=== PATIENT | male | born 1985 | race Caucasian/White ===

== ENCOUNTER 2023-06-26 06:35 | Emergency (ER) | payer BC ==
--- OUTSIDE RECORDS SUMMARY | 2023-06-26 06:38 | XMS REPORT | Continuity of Care Document ---
:1985 Author Organization [facility] t Address [address] [facility] [address] [place] [address] Care Team Providers Name Role Phone EARNEST KUNZ Primary Care Physician Unavailable Lapin_S Attending Clinician Unavailable JAIME HAGAN Attending Clinician Unavailable Jaime Estrada Attending Clinician Yvrose Webber Attending Clinician Doctor Unassigned, [place] Attending Clinician Unavailable Radiology Attending Clinician Unavailable RADIOLOGY Attending Clinician Unavailable Lapin_S Admitting Clinician Unavailable Payers Payer Name Policy Type Policy Number Effective Date Expiration Date S [place] [id number] 2017 00:00:00 [place] [id number] 2017 00:00:00 Problems Condition Condition Condition Status Onset Resolution Last Treating Co mments Source Name Details Category Date Date Treatment Clinician Date Varicocele Varicocele Problem Active 2021-10 [place] 2-13 [place] 00:00: Urology 00 Male Male Problem Active 2021-10 [place] sterilizat Sterilizat 2-12 Me tro ion ion 00:00: Urology 00 No known No known Disease Unive rs active active ity of problems problems [facility] Allergies, Adverse Reactions, Alerts Allergy Allergy Status Severity Reaction(s) Onset Inactive Treating Comm ents Source Name Type Date Date Clinician NO KNOWN Drug Active Univers ALLERGIE Class ity of S [facility] Social History Social Habit Start Date Stop Date Quantity Comments Source Sexual orientation [facility] Gender [facility] Exposure to 2022-04-05 2022-04-15 Not sure University SARS-CoV-2 (event) 00:00:00 16:16:00 [facility] Tobacco use and 2022-04-15 2022-04-15 Never used Universit y of exposure 00:00:00 00:00:00 [facility] History of Social 2019-05-31 2019-05-[address] function 00:00:00 00:00:00 Hospital Alcohol intake 2018-08-30 2018-08-30 Current drinker [facility] 00:00:00 00:00:00 [facility] (finding) Alcohol Comment 2018-08-30 2018-08-30 occasional [facility] 00[facility]00 [facility] Sex Assigned At [birth year] [facility] 00:[facility]00 [facility] Smoking Status Start Date Stop Date Source Never Smoker [facility] Unknown if ever smoked Universit y of [facility] Medications Ordered Filled Start Stop Current Ordering Indication Dosage Frequency Signature Comments Components Source Medication Medication Date Date Medication? Clinician (SIG) Name Name cephALEXin Yes [id number] 500mg Take 1 Univers (KEFLEX) 04-15 [id number] capsule by ity of 500 mg 00:00: mouth 4 [place] capsule 00 (four) Medical times Branch daily. mupirocin 2 Yes [id number] Apply to Univers % ointment 04-15 [id number] area(s) 3 it y of 00:00: (three) [place] 00 times Medical daily. Branch cephALEXin Yes [id number] 500mg Take 1 Univers (KEFLEX) 04-15 [id number] capsule by ity of 500 mg 00:00: mouth 4 [place] capsule 00 (four) Medical times Branch daily. mupirocin 2 Yes [id number] Apply to Univers % ointment 04-15 [id number] area(s) 3 it y of 00:00: (three) [place] 00 times Medical daily. Branch mupirocin 2 2021- No [id number] Apply to Univers % ointment 04-15 [id number] area(s) 3 i ty of 00:00: 00:00 (three) [place] 00 :00 times Medical daily for Branch 5 days. cephALEXin [id number] 500mg Take 1 Univers (KEFLEX) 04-15 [id number] capsule by it y of 500 mg 00:00: 00:00 mouth 4 [place] capsule 00 :00 (four) Medical times [place] daily for 7 days. sertraline sertraline No sertraline [place] 25 mg 25 mg 25 mg [place] tablet tablet tablet Urology Vital Signs Vital Name Observation Time Observation Value Comments Source Height 2022-09-21 00:00:00 73 [in_i] [facility] Urology BMI (Body Mass 2022-09-21 00:00:00 28.4 kg/m2 [place] Index) Urology Body Weight 2022-09-21 00:00:00 215 [lb_av] [facility] Urology Systolic blood 2022-04-15 21:25:00 138 mm[Hg] Univer [facility] Diastolic blood 2022-04-15 21:25:00 91 mm[Hg] [facility] Heart rate 2022-04-15 21:20:00 90 /min [facility] Body temperature 2022-04-15 21:20:00 36.89 [facility] Respiratory rate 2022-04-15 21:20:00 17 /min [facility] Body height 2022-04-15 21:20:00 185.4 cm [facility] Body weight 2022-04-15 21:20:00 99.791 kg [facility] BMI 2022-04-15 21:20:00 29.03 kg/m2 [facility] Oxygen saturation in 2022-04-15 21:20:00 99 /min [facility] Arterial blood by [facility] Pulse oximetry Branch Procedures Procedure Date / Time Performing Clinician Source Performed XR ANKLE 3+ VW LEFT 2022-04-15 21:38:00 Jaime Hagan [facility] ASSIGNMENT OF BENEFITS 2022-04-15 21:17:57 Doctor Unassigned, No [facility] Name [facility] XR CHEST 2 VW 2020-12-24 14:12:39 [facility] f [facility] XR RIBS 3 VW LEFT 2020-12-24 14:12:39 Earnest Kunz [facility] Diagnostic Colonoscopy 2016-10-10 00:00:00 [place] [facility] Plan of Care Planned Activity Planned Date Details Comments Source Future Scheduled Test 2023-06-15 COVID-19 VACCINE [facility] 01:38:59 (#1) [code = COVID-19 VACCINE (#1)] Future Scheduled Test 2023-06-15 INFLUENZA VACCINE [facility] 01:38:59 (#1) [code = INFLUENZA VACCINE (#1)] Diagnostic Test 2022-09-21 urinalysis, [place] Metr o Pending 00:00:00 dipstick [code = Urology urinalysis, dipstick] Encounters Start End Encounter Admission Attending Care Care Encounter Source Date/Time Date/Time Type Type Clinicians Facility Department ID 2022-10-05 2022-10-05 Outpatient Lapin_S [facility] [id number] [place] 00:00:00 00:00:00 [id number] [facility] 2022-09-21 2022-09-21 Outpatient Lapin_S [facility] [id number] 00:00:00 00:00:00 [id number] [facility] 2022-09-21 2022-09-21 Outpatient Lapin_S [facility] [id number] 00:00:00 00:00:00 [id number] [facility] 2022-09-21 2022-09-21 [facility] [place] - [id number] Sabrina quezada 00:00:00 00:00:00 Christa Ortiz MD: [facility] [address] [place] [place] [address], [place] [address] , Ph. 2022-09-17 2022-09-17 Outpatient Lapin_S [facility] [id number] 00:00:00 00:00:00 [id number] [facility] 2022-04-15 2022-04-15 [facility] [id number] Univers 16:28:09 23:59:00 JAIME blue [facility] 2022-04-15 2022-04-15 [facility] [id number] Univers 16:28:09 23:59:00 Encounter Jaime Castillo [facility] [id number] ity of [place] [id number] Ermias as JUSTIN?BLEA [id number] [facility] [address] MEDICAL OFFICE [facility] 2022-04-15 2022-04-15 Urgent Jaime Hagan [facility] [id number] Univers 16:20:00 16:44:29 Care Yvrose Davenport [employer] [id number] ity of [place] [id number] Ermias as JUSTIN?BLEA [id number] [facility] [address] [facility] OFFICE [facility] 2022-04-15 2022-04-15 Orders Doctor LISY [id number] Univers 00:00:00 00:00:00 Only Unassigned, JANET [id number] ity of [place] [facility] [id number] Ermias as [id number] [facility] [address] Branch 2020-12-24 2020-12-24 Hospital Radiology [facility] [id number] Univers 08:42:45 23:59:00 Encounter Nayla [id number] ity of [id number] [place] [id number] [facility] [address] 2020-12-24 2020-12-24 Outpatient R RADIOLOGY [facility] [id number] Univers 00:00:00 00:00:00 ity of [facility] Results Test Description Test Time Test Results Result Source Comments Comments XR RIBS 3 VW 2020-12-08 HISTORY: Chest pain. Un iversity of LEFT 7 R/O fractures. [facility] 14:17:04 FINDINGS: AP, several Bra nch obliques and spot views of the left ribs showednondisplaced fracture in the anterior left fifth, sixth ribs with possibleadditional incomplete fracture also in the anterior end of left seventh ribwith thickening and swelling of the underlying pleural lining. Nopneumothorax or pleural effusion. CONCLUSIONS: Nondisplaced fractures in anterior left fifth, sixth, seventhribs. [facility], Radiant Results Inft User - 12/24/2020 9:18 AM CDTHISTORY: Chest pain. R/O fractures.FINDINGS: AP, several obliques and spot views of the left ribs showednondisplaced fracture in the anterior left fifth, sixth ribs with possibleadditional incomplete fracture also in the anterior end of left seventh ribwith thickening and swelling of the underlying pleural lining. Nopneumothorax or pleural effusion. CONCLUSIONS: Nondisplaced fractures in anterior left fifth, sixth, seventhribs. XR CHEST 2 VW 2020-12-08 Addendum by Marina Paz versity of 7 MD [facility] on [facility] 14:15:41 12/24/2020 9:17 AM* * [facility] * * * * * * ADDENDUM: * * * * * * * *Some of the abnormal findings in the lower lungs could be secondary totrauma/nondisplaced fractures in left ribs.HISTORY: ?Chest pain. TECHNIQUE: 2 PA and one lateral views of the chest are obtained. No priorchest study available for comparison. FINDINGS: Linear increased markings are seen in both lower lungs, portionsof lingula segment and right middle lobe consistent with mildcongestion/discoid atelectatic changes without focal consolidation.Calcifie d granuloma is seen in the right middle lobe. Cardiomediastinal silhouette appear normal. No pneumothorax or pleuraleffusion. Minimal deformity due to fracture in the anterior left sixth rib with focalpleural thickening is visualized. CONCLUSIONS: Minimal bilateral pulmonary congestion/atelectatic changes,consistent with possibility of viral infection/bronchitis.[facility], Radiant Results Inft User - 12/24/2020 9:16 AM CDTHISTORY: Chest pain.TECHNIQUE: 2 PA and one lateral views of the chest are obtained. No priorchest study available for comparison.FINDINGS: Linear increased markings are seen in both lower lungs, portionsof lingula segment and right middle lobe consistent with mildcongestion/discoid atelectatic changes without focal consolidation.Calcifie d granuloma is seen in the right middle lobe.Cardiomediastinal silhouette appear normal. No pneumothorax or pleuraleffusion.Minima l deformity due to fracture in the anterior left sixth rib with focalpleural thickening is visualized.CONCLUSIONS : Minimal bilateral pulmonary congestion/atelectatic changes,consistent with possibility of viral infection/bronchitis.
[2023-06-26] MEDS ORDERED: KETOROLAC 30 MG/ML INJ ONE (07:51)
--- NOTE | 2023-06-26 08:29 | EDPHYS ---
Physician Documentation [facility] Name: David Link Age: 38 yrs Sex: Male : 1985 Arrival Date: 06/26/2023 Time: 06:35 Bed 6 Private MD: ED Physician Candelario Elaine HPI: 06/26 07:10 This 38 yrs old Male presents to ER via Ambulatory with complaints of Back sp4 Pain. 07:36 This 38 yrs old Male presents to ER via Ambulatory with complaints of Back ci Pain. 07:36 The patient presents with pain that is acute, with no known mechanism of injury. The ci patient presents with pain that is chronic, acute on chronic right lower back pain. The symptoms are located in the low back. Pain is located in right lower back, began a week ago, progressively worse. Hx of sciatica and pinched nerve. Pain is aggravated by sitting, alleviated by standing. Feels similar to his scitiac nerve pain. Radiates into right leg with some numbness to leg. No bowel/bladder dysfunction, no urinary retention, no fever, IVDU, saddle anesthesia. Denies trauma/fall. 07:49 The patient has experienced similar episodes in the past, a few times. ci Historical: - PMHx: 06:55 GERD; jw7 - Immunization history:: Adult Immunizations up to date. - Social history:: Smoking status: Patient denies any tobacco usage or history of. - : The history from the nurse's notes was reviewed and I agree with what is documented. ROS: 07:36 Constitutional: Negative for fever, chills, and weight loss, Eyes: Negative for injury, ci pain, redness, and discharge, ENT: Negative for injury, pain, and discharge, Neck: Negative for injury, pain, and swelling, Cardiovascular: Negative for chest pain, palpitations, and edema, Respiratory: Negative for shortness of breath, cough, wheezing, and pleuritic chest pain, Abdomen/GI: Negative for abdominal pain, nausea, vomiting, diarrhea, and constipation, Back: Negative for injury, positive right lower back pain MS/Extremity: Negative for injury and deformity, Skin: Negative for injury, rash, and discoloration, Neuro: Negative for headache, weakness, numbness, tingling, and seizure, Psych: Negative for depression, anxiety, suicide ideation, homicidal ideation, and hallucinations. Exam: 07:36 Constitutional: This is a well developed, well nourished patient who is awake, alert, ci and in no acute distress. Head/Face: Normocephalic, atraumatic. Eyes: Pupils equal round and reactive to light, extra-ocular motions intact. Lids and lashes normal. Conjunctiva and sclera are non-icteric and not injected. Cornea within normal limits. Periorbital areas with no swelling, redness, or edema. ENT: Nares patent. No nasal discharge, no septal abnormalities noted. Tympanic membranes are normal and external auditory canals are clear. Oropharynx with no redness, swelling, or masses, exudates, or evidence of obstruction, uvula midline. Mucous membranes moist. Neck: Trachea midline, no thyromegaly or masses palpated, and no cervical lymphadenopathy. Supple, full range of motion without nuchal rigidity, or vertebral point tenderness. No Meningismus. Chest/axilla: Normal chest wall appearance and motion. Nontender with no deformity. No lesions are appreciated. Cardiovascular: Regular rate and rhythm with a normal S1 and S2. No gallops, murmurs, or rubs. No JVD. No pulse deficits. Respiratory: Lungs have equal breath sounds bilaterally, clear to auscultation and percussion. No rales, rhonchi or wheezes noted. No increased work of breathing, no retractions or nasal flaring. Abdomen/GI: Soft, non-tender, with normal bowel sounds. No distension or tympany. No guarding or rebound. No evidence of tenderness throughout. Back: No spinal tenderness. No costovertebral tenderness. Full range of motion. Right gluteal point tenderness. Back atraumatic Skin: Warm, dry with normal turgor. Normal color with no rashes, no lesions, and no evidence of cellulitis. MS/ Extremity: Pulses equal, no cyanosis. Neurovascular intact. Full, normal range of motion. Neuro: Awake and alert, GCS 15, oriented to person, place, time, and situation. Cranial nerves II-XII grossly intact. Motor strength 5/5 in all extremities. Sensory grossly intact. Cerebellar exam normal. Normal gait. Psych: Awake, alert, with orientation to person, place and time. Behavior, mood, and affect are within normal limits. Vital Signs: 06:49 BP 122 / 91 LA Standing (auto/reg); Pulse 75 MON; Resp 17 S; Temp 97.5(O); Pulse Ox 98% jw7 on R/A; Weight 99.79 kg; Height 6 ft. 1 in. ; Pain 4/10; 07:34 BP 135 / 88; Pulse 63; Resp 16; Pulse Ox 98% ; ko1 07:59 BP 116 / 80; Pulse 64; Resp 16; Pulse Ox 98% ; ko1 08:29 BP 118 / 79; Pulse 61; Resp 16; Pulse Ox 97% ; ko1 06:49 Body Mass Index 29.03 (99.79 kg, 185.42 cm) jw7 06:49 Pain Scale: Adult jw7 MDM: 07:11 Transition of care: After a detail discussion of the patient's case, care is sp4 transferred to [facility]. 07:16 Patient medically screened. ci 07:36 Differential diagnosis: arthritis, chronic back pain, spinal injury, sprain, vertebral ci fracture, Sciatica, herniated disc. Data reviewed: vital signs, nurses notes. I considered the following discharge prescriptions or medication management in the emergency department I discussed and recommended Over The Counter medications, Medications were administered in the Emergency Department. See MAR. Test considered but Not performed: X-ray: Pain is acute on chronic, no midline spinal tenderness, denies red flags symptoms, imaging less likely to be beneficial. 07:49 ED course: Less likely cauda equina, epidural abscess, herniated disc, no midline spine ci tendernes and patient denies red flag symptoms.. 08:27 ED course: Patient reassessed, pain improved. Stable for discharge. ci 08:35 Care significantly affected by the following chronic conditions: GERD. Response to ci treatment: the patient's symptoms have markedly improved after treatment. Administered Medications: 07:40 Drug: Ketorolac IM 30 mg Route: IM; Site: left deltoid; ko1 Disposition Summary: 06/26/23 08:29 Discharge Ordered Location: Home ci Condition: Stable ci Diagnosis - Low back pain ci - Lumbago with sciatica, right side ci Discharge Instructions: - Discharge Summary Sheet ci - Acute Back Pain, Adult ci - Sciatica, Geor-us-Sowp ci - Back Exercises, Kexh-hs-Srfy ci Forms: - Medication Reconciliation Form ci - Thank You Letter ci - Antibiotic Education ci - Prescription Opioid Use ci - Patient Portal Instructions ci - Leadership Thank You Letter ci Prescriptions: - Cyclobenzaprine 10 mg Oral Tablet - take 1 tablet by ORAL route every 8 hours As needed; 30 tablet; Refills: 0, ci Product Selection Permitted - Diclofenac Sodium 75 mg Oral Tablet Sustained Release - take 1 tablet by ORAL route 2 times per day; 30 tablet; Refills: 0, Product ci Selection Permitted - Medrol (Zachery) 4 mg Oral Tablets, Dose Pack - take 1 tablet by ORAL route as directed - follow package instructions; 1 ci packet; Refills: 0, Product Selection Permitted - Pepcid 20 mg Oral Tablet - take 1 tablet by ORAL route once daily; 20 tablet; Refills: 0, Product ci Selection Permitted Signatures: Mae Dias, RN RN jw7 Suad Sullivan RN RN ko1 Angelo Jones MD MD sp4 Candelario Elaine ci Corrections: (The following items were deleted from the chart) 08:37 07:49 ED course: Less likely cauda equina, epidural abscess, . ci ci 08:39 07:36 Differential diagnosis: arthritis, chronic back pain, Osteoarthritis spinal ci injury, sprain, Sciatica, herniated disc ci 08:39 07:36 Test considered but Not performed: X-ray: Pain is acute on chronic, no midline ci spinal tenderness, denies red flags symptoms, imaging less likely to beneficial. ci 23:30 07:36 The history from the nurse's notes was reviewed. ci ci
--- NOTE | 2023-06-26 08:29 | ER ---
Nurse's Notes [facility] Name: David Link Age: 38 yrs Sex: Male : 1985 Arrival Date: 06/26/2023 Time: 06:35 Bed 6 Private MD: Diagnosis: Low back pain;Lumbago with sciatica, right side Presentation: 06/26 06:49 Chief complaint: Patient states: lower back pain, that shoots down right leg to the jw7 toes. pt states "I am having right sided sciatic nerve pain". Coronavirus screen: At this time, the client does not indicate any symptoms associated with coronavirus-19. Ebola Screen: No symptoms or risks identified at this time. Initial Sepsis Screen: Does the patient meet any 2 criteria? No. Patient's initial sepsis screen is negative. Does the patient have a suspected source of infection? No. Patient's initial sepsis screen is negative. Risk Assessment: Do you want to hurt yourself or someone else? Patient reports no desire to harm self or others. Onset of symptoms was June 19, 2023. 06:49 Acuity: DIAN 4 jw7 06:49 Method Of Arrival: Ambulatory [facility] Triage Assessment: 06:52 General: Appears in no apparent distress. uncomfortable, Behavior is calm, cooperative. jw7 Pain: Complains of pain in right gluteus nuris Pain radiates to right foot and right leg Pain currently is 4 out of 10 on a pain scale. at worst was 10 out of 10 on a pain scale. Quality of pain is described as sharp, shooting, Pain began 1 week ago Is continuous, Alleviated by standing Aggravated by sitting. EENT: No deficits noted. No signs and/or symptoms were reported regarding the EENT system. Neuro: No deficits noted. Light Agitation-Sedation Scale (RASS): 0 - Alert and Calm. Cardiovascular: No deficits noted. Capillary refill < 3 seconds Clubbing of nail beds is absent JVD is absent Patient's skin is warm and dry. Respiratory: No deficits noted. Airway is patent Trachea midline Respiratory effort is even, unlabored, Respiratory pattern is regular, symmetrical. GI: No deficits noted. No signs and/or symptoms were reported involving the gastrointestinal system. : No deficits noted. No signs and/or symptoms were reported regarding the genitourinary system. Derm: No deficits noted. No signs and/or symptoms reported regarding the dermatologic system. Skin is intact, is healthy with good turgor, Skin is dry, Skin is normal, Skin temperature is warm. Musculoskeletal: Circulation, motion, and sensation intact. Range of motion: intact in all extremities. Historical: - PMHx: 06:55 GERD; jw7 - Immunization history:: Adult Immunizations up to date. - Social history:: Smoking status: Patient denies any tobacco usage or history of. - : The history from the nurse's notes was reviewed and I agree with what is documented. Screenin:49 [facility] ED Fall Risk Assessment (Adult) History of falling in the last 3 months, jw7 including since admission No falls in past 3 months (0 pts) Score/Fall Risk Level 0 - 2 = Low Risk. Abuse screen: Denies threats or abuse. Denies injuries from another. Nutritional screening: No deficits noted. Tuberculosis screening: No symptoms or risk factors identified. Assessment: 06:55 General: see triage assessment. jw7 Vital Signs: 06:49 BP 122 / 91 [place] Standing (auto/reg); Pulse 75 MON; Resp 17 S; Temp 97.5(O); Pulse Ox 98% jw7 on R/A; Weight 99.79 kg; Height 6 ft. 1 in. ; Pain 4/10; 07:34 BP 135 / 88; Pulse 63; Resp 16; Pulse Ox 98% ; ko1 07:59 BP 116 / 80; Pulse 64; Resp 16; Pulse Ox 98% ; ko1 08:29 BP 118 / 79; Pulse 61; Resp 16; Pulse Ox 97% ; ko1 06:49 Body Mass Index 29.03 (99.79 kg, 185.42 cm) jw7 06:49 Pain Scale: Adult jw7 ED Course: 06:39 Patient arrived in ED. kj1 06:49 Mae Dias, RN is Primary Nurse. jw7 06:49 Patient has correct armband on for positive identification. Bed in low position. Call [facility] light in reach. 06:52 Triage completed. jw7 06:55 Arm band placed on. jw7 07:10 Angelo Jones MD is Attending Physician. sp4 07:12 Attending Physician role handed off by Angelo Jones MD ci 07:12 Candelario Elaine is Attending Physician. ci 07:12 Candelario Elaine is Attending Physician. ci 07:59 Provided Education on: na. Pulse ox on. NIBP on. Door closed. Noise minimized. Lights ko1 dimmed. 07:59 No provider procedures requiring assistance completed. ko1 08:32 IV discontinued, intact, bleeding controlled, No redness/swelling at site. Pressure ko1 dressing applied. Administered Medications: 07:40 Drug: Ketorolac IM 30 mg Route: IM; Site: left deltoid; ko1 Medication: 07:59 VIS not applicable for this client. ko1 Outcome: 08:29 Discharge ordered by MD. ci 08:32 Discharged to home ambulatory. ko1 08:32 Condition: stable 08:32 Discharge instructions given to patient, Instructed on discharge instructions, follow up and referral plans. medication usage, Demonstrated understanding of instructions, follow-up care, medications, Prescriptions given X 4. 08:41 Patient left the ED. ko1 Signatures: Alina Davidson kj1 Mae Dias RN RN jw7 Suad Sulilvan RN RN ko1 Angelo Jones MD MD sp4 Candelario Elaine ci Corrections: (The following items were deleted from the chart) 23:30 07:36 The history from the nurse's notes was reviewed. ci ci
[2023-06-26 08:48] VITALS: TEMP 97.5
[2023-06-26 08:51] VITALS: BP 118/79; O2SAT 97
== END 2023-06-26 08:41 | disposition home or self-care (01) ==
LOC: ER 06:35
DX: M54.41 Lumbago with sciatica, right side (principal)
CPT/HCPCS: 96372; 99284